=== PATIENT | male | born 1975 | race African-American/Black ===

== ENCOUNTER 2020-05-15 17:49 | Emergency (ER) | payer OTHER ==
[2020-05-15] MEDS ORDERED: LIDOCAINE 5% TOPICAL PATCH TP ONE (18:00)
[2020-05-15] MEDS ORDERED: IBUPROFEN 600 MG TABLET (FP) PO ONE ×2 (18:01→18:06)
[2020-05-15 18:07] VITALS: TEMP 99; BMI 30.8
[2020-05-15] MEDS ORDERED: LIDOCAINE 5% TOPICAL PATCH ONE (18:07)
--- NOTE | 2020-05-15 18:12 | PDOC ---
History of Present Illness - General Chief Complaint: Pain Stated Complaint: RIGHT RIB PAIN Time Seen by Provider: 05/15/20 18:00 History Source: Patient Exam Limitations: No Limitations - History of Present Illness Initial Comments: 05/15/20 18:02 HPI 44 YOM with h/o HLD, presenting with right sided chest pain, worse with deep breathing and movement since yesterday. Pt states he fell from a ladder about 9 ft up while working for the [employer], and landed on the ground on his right side. no LOC or head injury, no Anticoagulant use. He went to [facility] yesterday where he was dx'd with right 6th-7th rib fx by Xray and CT chest, rx'd mobic BID, lidoderm patch and incentive spirometer. He states he has been trying the spirometer, but difficult due to the pain. This morning he took the mobic at 830AM and had a lidoderm patch overnight, with some improvement. He continues to have right sided chest pain, sharp in nature and worse with movement and breathing. no SOB, headache, dizziness, AMS, palpitations, AP, n/v/d, weakness or paresthesias. ROS: Constitutional: no fevers or chills. HEENT: no headache, no dizziness. No visual or hearing changes. No dental pain. No neck pain CVS: no palpitations, no syncope. +chest wall pain. Resp: no shortness of breath Abdomen: no abdominal pain Genitorurinary: no hematuria MUSCULOSKELETAL: No joint pain and swelling. No muscle pain/arthralgias. Back: no back pain SKIN: no redness or skin changes, no discharge, no rash. +bruising to chest wall. Hematologic: +bruising to chest wall NEUROLOGIC: No weakness, numbness or tingling. Allergic/Immunologic: no allergies All other systems reviewed and negative, or as documented in HPI. Physical exam: General: GCS 15 - mild distress 2/2 pain. HEENT: NCAT, PERRL, EOMI. Airway intact. No battles sign or raccoon eyes. No e/o ocular. Dentition intact. No e/o septal hematoma, nasal bridge stable. Neck: neck supple, no midline C spine tenderness or deformity, ROM intact. No anterior mass or crepitus, trachea midline. Resp: Lungs clear bilaterally Chest: no clavicle or chest wall tenderness or crepitus Chest wall: right sided lateral/posterior chest wall ecchymosis, +very tender to palpation. no crepitus. CVS: +tachycardic, 2+ pulses throughout. Abdomen: Abdomen soft, nontender, nondistended. Back: Back nontender, no midline spinal tenderness along cervical/thoracic/lumbar spine, FROM, no stepoffs. MSK: Pelvis stable, Extremities symmetric, no focal areas of tenderness or deformities, proximal and distally; no pain on axial loading. FROM in all extrem. Neuro: Alert, oriented appropriately. CN II-XII grossly symmetric and intact. no focal neuro deficits. Sensation and strength intact throughout. Gait normal/stable. Skin: intact, normal color and well perfused. +ecchymosis to the right lateral/posterior chest wall. 05/15/20 18:54 Past History - Medical History Allergies/Adverse Reactions: Allergies Allergy/AdvReac Type Severity Reaction Status Date / Time No Known Allergies Allergy Unverified 05/15/20 17:52 Home Medications: Ambulatory Orders Atorvastatin Ca [Lipitor] 20 mg PO HS 05/15/20 Oxycodone HCl/Acetaminophen [Percocet 5-325 mg Tablet] 1 - 2 tab PO Q6H PRN #20 tab MDD 8 05/15/20 Medical Decision Making - Medical Decision Making 05/15/20 18:07 A/P 44 YOM with h/o HLD, presenting with right sided chest pain, worse with deep breathing and movement since yesterday from a ladder at work. vitals: hypertensive and tachy likely from pain no history of HTN, likely the pain from rib fx, will recheck [facility] form today 05/15/20 - results showed CT scan of chest no e/o ptx or hemothorax or organ contusion, there are nondisplaced rib fractures on the right involving 6th-7th ribs. no need for repeat imaging lungs are clear, he is splinting no abdominal tenderness, doubt intra abdominal injury no back or spinal tenderness gait stable, no focal neuro deficits repeat VS improved, no longer tachy, or hypertensive. to continue with the incentive spirometer with breathing exercises. has rx for mobic and lidoderm patch pt meets indications for pain control with percocets x 3 days, rest and phys activity as tolerated 05/15/20 18:14 05/15/20 18:55 Discharge - Discharge Information Problems reviewed: Yes Clinical Impression/Diagnosis: Multiple fractures of ribs, right side, subsequent encounter for fracture with routine healing, Hypertension Contusion of right chest wall Qualifiers: Encounter type: initial encounter Qualified Code(s): S20.211A - Contusion of right front wall of thorax, initial encounter Condition: Stable Disposition: HOME - Admission No - Additional Discharge Information Prescriptions: Oxycodone HCl/Acetaminophen [Percocet 5-325 mg Tablet] 1 - 2 tab PO Q6H PRN #20 tab MDD 8 PRN Reason: Severe Pain - Follow up/Referral Referrals: [facility] [place] [Provider Group] [facility] [Provider Group] - Patient Discharge Instructions Patient Printed Discharge Instructions: DI for Rib Fracture, DI for High Blood Pressure, DI for Rib Contusion Additional Instructions: you have 2 rib fractures on the right side and contusion or bruising of your chest wall/ribs. This is a very painful condition. You had a CAT scan done yesterday at urgent care but did not reveal any blood or pneumothorax which is reassuring. You can take Percocet 1 to 2 tablets every 6 hours as needed for severe pain. Do not drive, drink alcohol, operate machinery, use ladders or go to work when using this medication as it can make you very sleepy, dizzy as well as cause constipation. Drink lots of fluids with this and take with food. Take your other medications as directed including the Mobic, Lidoderm patch 12 hours on and 12 hours off. Continue to use the incentive spirometer every hour and deep breathing exercises to prevent collapse at the bases of your lungs. Follow-up with primary care doctor. Work note will be provided to limit physical activity or further injuries. you also have high blood pressure which could be from pain, make sure to get this rechecked with your primary doctor on reevaluation follow up with primary doctor for the rib fractures as well. - Post Discharge Activity Work/Back to School Note: Back to Work Vital Signs - Vital Signs Vital signs refused: No Pulse Rate: 88 (SpO2 98%) Blood Pressure: 153/95
[2020-05-15 18:47] VITALS: BP 153/95; PULSE 88
== END 2020-05-15 18:54 | disposition home or self-care (01) ==
LOC: FER 17:49
DX: S20.211A Contusion of right front wall of thorax, initial encounter (principal); I10 Essential (primary) hypertension
CPT/HCPCS: 99283-25